=== PATIENT | female | born 1990 | race Caucasian/White ===

== ENCOUNTER 2019-05-02 10:49 | Emergency (ER) | payer SELFPAY ==
--- NOTE | 2019-05-02 11:37 | DI.RAD.S_ITS ---
PROCEDURE: XR WRIST RT MIN 3V INDICATIONS: injury TECHNIQUE: 4 views of the wrist were acquired. COMPARISON: None. FINDINGS: Bones: There is a minimally displaced transverse fracture involving the distal right radial metaphysis with slight dorsal angulation and mild dorsal cortical buckling. An ulnar styloid process avulsion fracture is also evident. No additional fractures are evident. There is no dislocation or suspicious osseous lesion. Soft tissues: No suspicious soft tissue calcifications. Soft tissue swelling about the wrist is present. IMPRESSION: 1. Colles' fracture of the distal right radius with mild dorsal impaction. 2. Ulnar styloid process avulsion fracture. Dictated by: Leon Peraza M.D. on 05/02/2019 at 11:25 Approved by: Leon Peraza M.D. on 05/02/2019 at 11:26
[2019-05-02 11:39] VITALS: BP 129/70; PULSE 88; RESP 13; TEMP 36.9; O2SAT 98
--- NOTE | 2019-05-02 12:00 | ED.UPPEXIN ---
HPI - Extremity Injury (Upper) <JOANNA Williamson - Last Filed: 05/02/19 16:06> General Chief Complaint: Extremity Injury, Upper Stated Complaint: rt wrist possible broken Time Seen by Provider: 05/02/19 11:31 Source: patient Mode of arrival: Ambulatory Limitations: no limitations History of Present Illness HPI narrative: The patient is a 28-year-old female former smoker who denies pertinent medical history presents with a chief complaint of a right wrist injury. She states she was out for ?girls night last night was very intoxicated. She states that she fell and does not know how she landed on her right wrist. However she denies any hitting her head, neck pain or back pain. She thinks was a FOOSH injury. She states she is right-hand dominant, denies any tingling numbness, states she can move her fingers but it is difficult to move her wrist. She has not taken anything for pain. She only applied ice when she arrived to the emergency department. She states that she will never drink that much again. Related Data Previous Rx's Medication Instructions Recorded hydrocodone-acetaminophen [[place]] 1 tab PO Q4-6H PRN #10 tab 05/02/19 Review of Systems <JOANNA Williamson - Last Filed: 05/02/19 16:06> Review of Systems Narrative: GENERAL: Denies chills, fatigue, malaise, fever, sweats. HEENT: Denies sinus pain, ear pain, sore throat, difficulty swallowing, dizziness. RESPIRATORY: Denies dyspnea, cough, wheezing, hemoptysis, sputum. CARDIOVASCULAR: Denies chest pain, palpitations, orthopnea, edema, GASTROINTESTINAL: Denies nausea, vomiting, abdominal pain, diarrhea, constipation, melena. : Denies dysuria, frequency, incontinence, hematuria, urinary retention. MUSCULOSKELETAL: See HPI SKIN: See HPI NEUROLOGIC: Denies weakness, headache, numbness, change in speech, confusion, seizures, incoordination. PSYCHIATRIC: No concerning psychosocial issues. 12 point review of systems is negative except for those stated above Patient History <JOANNA Williamson - Last Filed: 05/02/19 16:06> Social History Smoking Status: Former smoker Smoking Status: Former smoker Substance Use Type: does not use Exam <JOANNA Williamson - Last Filed: 05/02/19 16:06> Narrative Exam Narrative: GENERAL: This is a well-nourished, well-developed patient, in no acute distress HEAD: Atraumatic. Normocephalic. No temporal or scalp tenderness. EYES: Pupils equal round and reactive. Extraocular motions intact. No scleral icterus. No injection or drainage. ENT: Nose without bleeding, purulent drainage or septal hematoma. Throat without erythema, tonsillar hypertrophy or exudate. Uvula midline. Airway patent. NECK: Trachea midline. No JVD or lymphadenopathy. Supple, nontender, no meningeal signs. CARDIOVASCULAR: Regular rate and rhythm RESPIRATORY: No cough. No increased respiratory effort. No accessory muscle use.. EXTREMITIES: General pain to palpation noted right wrist. No pain to palpation right elbow or shoulder. Moving all fingers. Capillary refill less than 2 seconds all fingers right hand. Positive radial pulse. No snuffbox tenderness to palpation. BACK: Nontender without deformity or crepitance. No flank tenderness. NEURO: AOx3. SKIN: No rash or erythema on visible skin. No ecchymosis laceration or abrasion on visible skin Initial Vital Signs Initial Vital Signs: Vital Signs Temperature 98.4 F 05/02/19 11:39 Pulse Rate 88 05/02/19 11:39 Respiratory Rate 13 05/02/19 11:39 Blood Pressure 129/70 05/02/19 11:39 Pulse Oximetry 98 05/02/19 11:39 <Antonieta Love DO - Last Filed: 05/03/19 07:56> Initial Vital Signs Initial Vital Signs: Vital Signs Temperature 98.4 F 05/02/19 11:39 Pulse Rate 88 05/02/19 11:39 Respiratory Rate 13 05/02/19 11:39 Blood Pressure 129/70 05/02/19 11:39 Pulse Oximetry 98 05/02/19 11:39 Procedures <JOANNA Williamson Last Filed: 05/02/19 16:06> Orthopedic Splinting/Casting Injury #1: Side: right Upper Extremity Injury Location: wrist Upper Extremity Immobilizer: sugar tong splint Post splinting neuro exam: intact Post splinting vascular exam: intact Placed by: Nursing Course <JOANNA Williamson - Last Filed: 05/02/19 16:06> Orders Ordered: ED Orders 05/02/19 11:37 XR wrist RT min 3V Stat Vital Signs Vital signs: Vital Signs - 8 hr 05/02/19 11:39 05/02/19 13:10 Temperature 98.4 F Pulse Rate 88 89 Respiratory Rate 13 14 Blood Pressure 129/70 Blood Pressure [Left Arm] 117/79 Pulse Oximetry 98 98 <Antonieta Love DO - Last Filed: 05/03/19 07:56> Orders Ordered: ED Orders 05/02/19 11:37 XR wrist RT min 3V Stat Vital Signs Vital signs: Vital Signs - 8 hr 05/02/19 11:39 05/02/19 13:10 Temperature 98.4 F Pulse Rate 88 89 Respiratory Rate 13 14 Blood Pressure 129/70 Blood Pressure [Left Arm] 117/79 Pulse Oximetry 98 98 MDM - Extremity Injury (Upper) <JOANNA Williamson - Last Filed: 05/02/19 16:06> Differential Diagnosis Differential diagnosis: Likely sprain and strain of wrist and fracture of wrist Imaging Data Extremity x-ray #1: Radiologist's Impression: [address] [place] [id number] XRay Report Signed Patient: Enmanuel Schumacher#: [id number] : 1990Acct:[id number] Age/Sex: 28 / FDate of Service: 05/02/19 Loc: ED Accession Number: [id number] Procedure: XR wrist RT min 3V Ordering Provider: Sarah Lambert PROCEDURE: XR WRIST RT MIN 3V INDICATIONS: injury TECHNIQUE: 4 views of the wrist were acquired. COMPARISON: None. FINDINGS: Bones: There is a minimally displaced transverse fracture involving the distal right radial metaphysis with slight dorsal angulation and mild dorsal cortical buckling. An ulnar styloid process avulsion fracture is also evident. No additional fractures are evident. There is no dislocation or suspicious osseous lesion. Soft tissues: No suspicious soft tissue calcifications. Soft tissue swelling about the wrist is present. IMPRESSION: 1. Colles' fracture of the distal right radius with mild dorsal impaction. 2. Ulnar styloid process avulsion fracture. Dictated by: Leon Peraza M.D. on 05/02/2019 at 11:25 Approved by: Leon Peraza M.D. on 05/02/2019 at 11:26 [facility] Narrative Medical decision making narrative: The patient is a 28-year-old female who presents with chief complaint of an isolated right wrist injury she fell last night while intoxicated. X-ray illustrate Colles fracture of distal right radius with mild dorsal impaction, ulnar styloid process avulsion fracture. Films reviewed by Dr Love who encouraged sugar-tong splint, which was done. Patient was given prescription of [place]. She was neurovascularly intact before and after her splinting. Discussed at length the importance of follow-up with primary care provider, rest ice compression elevation as well as follow-up with PCP and Orthopedics. Discussed that [place] can be constipating and sedating. Patient has no questions or concerns upon discharge and states understanding of return precautions as well as follow-up care. Discharge Plan Departure Patient Disposition: Home Clinical Impression: Colles' fracture Qualifiers: Encounter type: initial encounter Fracture type: closed Laterality: right Qualified Code(s): S52.531A - Colles' fracture of right radius, initial encounter for closed fracture Discharge Date/Time: 05/02/19 13:30 Instructions: How to Use a Sling, DI for Wrist Fracture, How To Perform RICE (Rest, Ice, Compress, Elevate), How to Take Care of Your Splint Activity Restrictions/Additional Instructions: As discussed, unfortunately you broke your wrist. Please follow-up with primary care provider as well as [facility]. I've given the contact information at [facility] human resource statistician, who can help you identify primary care provider. I sent a prescription of hydrocodone with Tylenol to [facility] in [place] Please continue to use rest ice compression elevation. I've given you a note for work, stating that you cannot use her right arm. I have given you a prescription of a narcotic for pain. Be aware that this can be constipating and sedating. I encouraged taking with a stool softener, pushing fluids and fiber. Do not take and drive, operate heavy machinery, etc. Do not combine it with any other sedating substances such as alcohol. The combination of narcotics and alcohol and/or other sedatives can be lethal. Please be aware that we do not provide refills of controlled substances in the emergency department. Please follow up with her primary care provider. Prescriptions: New hydrocodone-acetaminophen [[place]] 5-325 mg tablet 1 tab PO Q4-6H PRN (Reason: pain) Qty: 10 RF: 0 Referrals: [facility] [Provider Group] [facility] Health Resources [Outside] Stand Alone Forms: Work Release Note
[2019-05-02 13:10] VITALS: BP 117/79; PULSE 89; RESP 14; O2SAT 98
== END 2019-05-02 13:30 | disposition home or self-care (01) ==
PROVIDERS: Emergency Provider Nurse Practitioner Family
DX: S52.531A Colles' fracture of right radius, initial encounter for closed fracture (principal); W19.XXXA Unspecified fall, initial encounter
CPT/HCPCS: 29125; 73110; 99283; 99284